=== PATIENT | female | born 1970 | race American Indian/Alaskan Native ===

== ENCOUNTER 2020-11-04 09:25 | Inpatient (IN) | payer MEDICAID ==
[2020-11-04] MEDS ORDERED: IPRATROPIUM/ALBUTEROL SULFATE 3 ML AMPUL.NEB IH ONE ×2 (09:47→14:09)
--- NOTE | 2020-11-04 09:49 | Emergency Department Report ---
ED Shortness of Breath HPI - General Stated Complaint: COUGH/LENA Time Seen by Provider: 11/04/20 09:40 - History of Present Illness Initial Comments: Patient presents with shortness of breath. She states for the last couple of weeks, she has had more more trouble breathing. She describes exertional dyspnea as well as orthopnea. She has not noticed pain or swelling in the feet. There has been a cough producing of whitish phlegm. She has not had fevers or chills. She does not know if this is her asthma acting up or something else. She does have a history of asthma. She has not been using an inhaler on any kind of frequent basis. Patient has not been eating salt. She denies chest pain. She states that she just cannot catch her breath. She does admit that when she wakes up in the middle the night, she seems to be gasping and has an i mpending sense of doom like she is going to . Patient also admits that she has not been on blood pressure medication for a month. - Related Data Allergies Allergy/AdvReac Type Severity Reaction Status Date / Time No Known Allergies Allergy Unverified 11/04/20 09:45 ED Review of Systems ROS: Stated complaint: COUGH/LENA Other details as noted in HPI Comment: All other systems reviewed and negative Constitutional: denies: fever Eyes: denies: eye pain ENT: denies: throat pain Respiratory: no symptoms reported Cardiovascular: denies: chest pain Endocrine: denies: unexplained weight loss Gastrointestinal: denies: abdominal pain Genitourinary: denies: dysuria Musculoskeletal: denies: back pain Skin: denies: rash Neurological: denies: headache Hematological/Lymphatic: denies: easy bruising ED Past Medical Hx - Past Medical History Previous Medical History?: Yes Hx Asthma: Yes - Family History Family history: hypertension ED Physical Exam - General Limitations: No Limitations, Other ( Pulse ox was noted to normal. She is not hypoxic.) General appearance: alert, in distress ( Moderate) - Head Head exam: Present: atraumatic, normocephalic, normal inspection - Eye Eye exam: Present: normal appearance, EOMI. Absent: scleral icterus - ENT ENT exam: Present: normal exam, normal external ear exam - Neck Neck exam: Present: normal inspection. Absent: meningismus - Respiratory Respiratory exam: Present: respiratory distress ( moderate), rales ( bilateral) - Cardiovascular Cardiovascular Exam: Present: normal rhythm, tachycardia - GI/Abdominal GI/Abdominal exam: Present: soft. Absent: distended, tenderness - Extremities Exam Extremities exam: Present: normal capillary refill. Absent: pedal edema - Back Exam Back exam: Absent: CVA tenderness (R), CVA tenderness (L) - Neurological Exam Neurological exam: Present: alert, oriented X3, reflexes normal. Absent: motor sensory deficit - Psychiatric Psychiatric exam: Present: other ( tearful) - Skin Skin exam: Present: warm, dry ED Course - Reevaluation(s) Reevaluation #1: 11/04/20 09:49 IV, labs, x-ray, and DuoNeb were ordered. Reevaluation #2: 11/04/20 10:28 Chest x-ray was noted. Labs are pending. Reevaluation #3: 11/04/20 12:07 Case was discussed with the hospitalist who will admit. 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 ED Medical Decision Making - Lab Data Result diagrams: 11/04/20 10:29 11/04/20 10:29 - Radiology Data Radiology results: report reviewed - Medical Decision Making Patient presents with difficulty breathing and actually describes exertional dyspnea as well as orthopnea. She does have evidence of congestive heart failure which is new onset. She will be admitted for rule out as well as restratification. She has had Lasix ordered for diuresis. Echocardiogram will be considered as well. There is no history of travel or leg edema suggestive of PE. Critical Care Time: No Critical care attestation.: If time is entered above; I have spent that time in minutes in the direct care of this critically ill patient, excluding procedure time. ED Disposition Clinical Impression: New onset of congestive heart failure, Dyspnea Disposition: ADMITTED INPATIENT Is pt being admited?: Yes Does the pt Need Aspirin: No Condition: Stable
--- NOTE | 2020-11-04 10:24 | XRay Report ---
CHEST 2 VIEWS INDICATION / CLINICAL INFORMATION: dyspnea. History of asthma. COMPARISON: [facility] chest radiograph dated 01/07/18 FINDINGS: SUPPORT DEVICES: None. HEART / MEDIASTINUM: Heart is moderately enlarged with increased since the prior study. LUNGS / PLEURA: Mild interstitial pulmonary edema. No significant pleural effusion. No pneumothorax. ADDITIONAL FINDINGS: No significant additional findings. IMPRESSION: 1. Mild congestive heart failure. Signer Name: Kvng Uriarte MD Signed: 11/04/2020 10:20 AM Workstation Name: [id number]
[2020-11-04 10:53] LABS: Basophils # (Auto) 0.1 K/mm3 (0.0-0.1); Basophils % (Auto) 1.1 % (0.0-1.8); Eosinophils # (Auto) 0.1 K/mm3 (0.0-0.4); Hematocrit 33.1 % (30.3-42.9); Hemoglobin 10.7 gm/dl (10.1-14.3); Lymphocytes # (Auto) 1.6 K/mm3 (1.2-5.4); Mean Corpuscular HGB Conc 32 % (30-34); Mean Corpuscular Volume 79 fl (79-97); Monocytes # (Auto) 0.4 K/mm3 (0.0-0.8); Monocytes % (Auto) 6.6 % (0.0-7.3); Platelet Count 387 K/mm3 (140-440); Red Cell Distribution Width 17.7 % (13.2-15.2)
[2020-11-04 11:15] LABS: BUN/Creatinine Ratio 13; Blood Urea Nitrogen 10 mg/dL (7-17); Calcium 8.1 mg/dL (8.4-10.2); Hemolysis Index 9
[2020-11-04] MEDS ORDERED: FUROSEMIDE 40 MG/4 ML INJ IV ONE (11:55)
[2020-11-04] MEDS ORDERED: LORazepam 2 MG/ML VIAL IV ONE (15:41)
--- NOTE | 2020-11-04 21:10 | History and Physical Report ---
History of Present Illness Date of examination: 11/04/20 Date of admission: 11/04/20 13:50 Chief complaint: Shortness of breath for 2 weeks on exertion History of present illness: 50-year-old -[place] female with past medical history significant for asthma comes in for increasing shortness of breath for the last 2 weeks. Shortness of breath on minimal exertion. No chest pain. Patient also more short of breath on lying flat. No swelling of the feet. No cough or fever. Patient is not vaccinated and does not want to take the Covid vaccine. No chest pain. Patient has class IV NYHA is chills. No precipitating factors. Patient not taking her blood pressure medications. Noncompliant. No insight into her problems. - Past Medical History Previous Medical History?: Yes --Asthma: Yes -Surgical history --no - Family History --Family history: hypertension Social history --no alcohol smoking -Review of Systems ROS: Stated complaint: COUGH/LENA Other details as noted in HPI Comment: All other systems reviewed and negative Constitutional: denies: fever Eyes: denies: eye pain ENT: denies: throat pain Respiratory: no symptoms reported Cardiovascular: denies: chest pain Endocrine: denies: unexplained weight loss Gastrointestinal: denies: abdominal pain Genitourinary: denies: dysuria Musculoskeletal: denies: back pain Skin: denies: rash Neurological: denies: headache Hematological/Lymphatic: denies: easy bruising Medications and Allergies Allergies Allergy/AdvReac Type Severity Reaction Status Date / Time peanut Allergy Angioedema Verified 11/04/20 21:14 Home Medications Medication Instructions Recorded Confirmed Last Taken Type Lisinopril [Zestril] 5 mg PO QDAY 11/04/20 11/04/20 Unknown History Exam - Constitutional Vitals: Temp Pulse Resp BP Pulse Ox 98.2 F 100 H 19 153/97 99 11/04/20 19:12 11/04/20 19:12 11/04/20 19:12 11/04/20 19:12 11/04/20 19:12 General appearance: Present: mild distress, well-nourished - EENT Eyes: Present: PERRL ENT: hearing intact, clear oral mucosa - Neck Neck: Present: supple, normal ROM - Respiratory Respiratory effort: normal Respiratory: bilateral: CTA - Cardiovascular Heart rate: 78 Rhythm: regular Heart Sounds: Present: S1 & S2. Absent: rub, click - Extremities Extremities: no ischemia, pulses intact, pulses symmetrical, No edema Peripheral Pulses: within normal limits - Abdominal General gastrointestinal: Present: soft, non-tender, non-distended, normal bowel sounds Female genitourinary: Present: normal - Integumentary Integumentary: Present: clear, warm, dry - Musculoskeletal Musculoskeletal: gait normal, strength equal bilaterally - Psychiatric Psychiatric: appropriate mood/affect, intact judgment & insight - Neurologic Neurologic: CNII-XII intact, moves all extremities - Allied Health Allied health notes reviewed: nursing, case management HEART Score - HEART Score History: Moderately suspicious Age: 45-65 Risk factors: 1-2 risk factors Troponin: Troponin T < 0.010 ng/mL (0.00-0.029) 11/04/20 10:29 Troponin: < normal limit - Critical Actions Critical Actions: 4-6 pts:12-16.6% risk of adverse cardiac event. Should be admitted Results - Labs CBC & Chem 7: 11/04/20 10:29 11/04/20 10:29 Labs: Laboratory Last Values WBC 6.0 K/mm3 (4.5-11.0) 11/04/20 10:29 RBC 4.20 M/mm3 (3.65-5.03) 11/04/20 10:29 Hgb 10.7 gm/dl (10.1-14.3) 11/04/20 10:29 Hct 33.1 % (30.3-42.9) 11/04/20 10:29 MCV 79 fl (79-97) 11/04/20 10:29 MCH 26 pg (28-32) L 11/04/20 10:29 MCHC 32 % (30-34) 11/04/20 10:29 RDW 17.7 % (13.2-15.2) H 11/04/20 10:29 Plt Count 387 K/mm3 (140-440) 11/04/20 10:29 Lymph % (Auto) 26.0 % (13.4-35.0) 11/04/20 10:29 [place] % (Auto) 6.6 % (0.0-7.3) 11/04/20 10:29 Eos % (Auto) 2.0 % (0.0-4.3) 11/04/20 10:29 Baso % (Auto) 1.1 % (0.0-1.8) 11/04/20 10:29 Lymph # (Auto) 1.6 K/mm3 (1.2-5.4) 11/04/20 10:29 [place] # (Auto) 0.4 K/mm3 (0.0-0.8) 11/04/20 10:29 Eos # (Auto) 0.1 K/mm3 (0.0-0.4) 11/04/20 10:29 Baso # (Auto) 0.1 K/mm3 (0.0-0.1) 11/04/20 10:29 Seg Neutrophils % 64.3 % (40.0-70.0) 11/04/20 10:29 Seg Neutrophils # 3.9 K/mm3 (1.8-7.7) 11/04/20 10:29 Sodium 141 mmol/L (137-145) 11/04/20 10:29 Potassium 4.3 mmol/L (3.6-5.0) 11/04/20 10:29 Chloride 107.7 mmol/L (98-107) H 11/04/20 10:29 Carbon Dioxide 24 mmol/L (22-30) 11/04/20 10:29 Anion Gap 14 mmol/L 11/04/20 10:29 BUN 10 mg/dL (7-17) 11/04/20 10:29 Creatinine 0.8 mg/dL (0.6-1.2) 11/04/20 10:29 Estimated GFR > 60 ml/min 11/04/20 10:29 BUN/Creatinine Ratio 13 % 11/04/20 10:29 Glucose 107 mg/dL (65-100) H 11/04/20 10:29 Calcium 8.1 mg/dL (8.4-10.2) L 11/04/20 10:29 Troponin T < 0.010 ng/mL (0.00-0.029) 11/04/20 10:29 NT-Pro-B Natriuret Pep 5325 pg/mL (0-900) H 11/04/20 Unknown Short CBC 11/04/20 Range/Units 10:29 WBC 6.0 (4.5-11.0) K/mm3 Hgb 10.7 (10.1-14.3) gm/dl Hct 33.1 (30.3-42.9) % Plt Count 387 (140-440) K/mm3 BMP 11/04/20 10:29 Sodium 141 Potassium 4.3 Chloride 107.7 H Carbon Dioxide 24 BUN 10 Creatinine 0.8 Glucose 107 H Calcium 8.1 L Cardiac Enzymes 11/04/20 Range/Units 10:29 Troponin T < 0.010 (0.00-0.029) ng/mL - Imaging and Cardiology EKG: report reviewed (Sinus rhythm no acute ST-T wave changes) Chest x-ray: report reviewed Imaging and Cardiology: Chest x-ray Lungs mild interstitial pulmonary edema no significant pleural effusion no pneumothorax. Impression mild congestive heart failure Assessment and Plan Advance Directives: Yes (Full code) VTE prophylaxis?: Chemical Plan of care discussed with patient/family: Yes - Patient Problems (1) Acute exacerbation of CHF (congestive heart failure) Current Visit: Yes Status: Acute Qualifiers: Heart failure type: unspecified Qualified Code(s): I50.9 - Heart failure, unspecified Plan to address problem: Patient has new onset CHF Patient's BNP is 5025 chest Chest x-ray is consistent with CHF No chest pain or any precipitating factor other than uncontrolled blood pressure Patient is noncompliant with her blood pressure medications Echocardiogram for ejection fraction and valve function Cardiology consult requested Patient initiated on IV Lasix and potassium Antihypertensives initiated Daily weights and intake and output (2) Hypertensive emergency Current Visit: Yes Status: Acute Plan to address problem: Blood pressure may be the precipitating factor for CHF Valsartan 160 every 12 hours, hydralazine 25 every 8 hours initiated and Coreg 6.25 every 12 hours initiated Hydralazine 10 mg IV every 3 hours as needed for blood pressure more than 150/100 Coreg 6.25 Patient counseled about noncompliance Patient to be counseled about compliance again (3) 2019 novel coronavirus vaccination declined Current Visit: Yes Status: Chronic Plan to address problem: Patient to be counseled about COVID-19 vaccine again Patient is vaccine hesitant (4) Hypocalcemia Current Visit: Yes Status: Acute Plan to address problem: Caltrate twice daily initiated (5) DVT prophylaxis Current Visit: Yes Status: Acute Plan to address problem: On heparin and GI prophylaxis
[2020-11-04] MEDS ORDERED: HYDROmorphone 1 MG/1 ML INJ IV PRN (21:12)
[2020-11-04] MEDS ORDERED: ACETAMINOPHEN 325 MG TAB PO PRN (21:12)
[2020-11-04] MEDS ORDERED: ONDANSETRON 4 MG/2 ML INJ IV PRN (21:12)
[2020-11-04] MEDS ORDERED: METOCLOPRAMIDE 10 MG/2 ML INJ IV PRN (21:12)
[2020-11-04] MEDS: POTASSIUM CHLORIDE ER 20 MEQ TAB PO SCH (22:40)
[2020-11-04] MEDS: FAMOTIDINE 20 MG TAB PO SCH (22:40)
[2020-11-05] MEDS: oxyCODONE /ACETAMINOPHEN 5-325MG TAB PO PRN ×2 (01:49→07:15)
[2020-11-05] MEDS ORDERED: FUROSEMIDE 40 MG/4 ML INJ IV SCH (06:00)
[2020-11-05] MEDS ORDERED: hydrALAZINE 20 MG/1 ML INJ IV PRN (06:24)
[2020-11-05 06:34] LABS: Basophils % (Auto) 0.5 % (0.0-1.8); Eosinophils # (Auto) 0.2 K/mm3 (0.0-0.4); Eosinophils % (Auto) 2.9 % (0.0-4.3); Hematocrit 33.9 % (30.3-42.9); Hemoglobin 11.1 gm/dl (10.1-14.3); Lymphocytes # (Auto) 2.3 K/mm3 (1.2-5.4); Lymphocytes % (Auto) 35.3 % (13.4-35.0); Mean Corpuscular HGB Conc 33 % (30-34); Mean Corpuscular Volume 78 fl (79-97); Monocytes # (Auto) 0.5 K/mm3 (0.0-0.8); Platelet Count 400 K/mm3 (140-440); Red Blood Count 4.35 M/mm3 (3.65-5.03); Red Cell Distribution Width 17.4 % (13.2-15.2)
[2020-11-05] MEDS ORDERED: VALSARTAN 160MG TAB PO SCH (06:40)
[2020-11-05 06:42] LABS: Alanine Aminotransferase 39 units/L (7-56); Albumin 3.3 g/dL (3.9-5); BUN/Creatinine Ratio 14; Blood Urea Nitrogen 13 mg/dL (7-17); Calcium 8.3 mg/dL (8.4-10.2); Hemolysis Index 1
[2020-11-05] MEDS ORDERED: carvediloL 6.25 MG TAB PO SCH ×2 (06:45→10:37)
--- NOTE | 2020-11-05 08:54 | Progress Note ---
Assessment and Plan Assessment and plan: --Acute new onset CHF (congestive heart failure) Current Visit: Yes Status: Acute Patient has new onset CHF, unknown ejection fraction Follow echocardiogram for LV function ejection fraction, continue antifailure medications diuretics, beta-blockers ROSITA inhibitors, input output monitoring, low-sodium diet Fluid restriction, daily weights, follow electrolytes Cardiology evaluation noted and appreciated Stress test tomorrow --Hypertensive emergency/present on admission Current Visit: Yes Status: Acute Blood pressure may be the precipitating factor for CHF Valsartan 160 every 12 hours, hydralazine 25 every 8 hours initiated and Coreg 6.25 every 12 hours initiated Hydralazine 10 mg IV every 3 hours as needed for blood pressure more than 150/100 Coreg 6.25 Patient counseled about noncompliance -- unvaccinated Current Visit: Yes Status: Chronic Patient to be counseled about COVID-19 vaccine again Patient is vaccine hesitant --Hypocalcemia Current Visit: Yes Status: Acute Replenish per protocol --Mild malnutrition/hypoalbuminemia Current Visit: Yes Status: Chronic Albumin 3.3 ,nutrition supplements and supportive care Nutrition consult if needed --DVT prophylaxis Current Visit: Yes Status: Acute On heparin Cardiology evaluation recommendation noted and appreciated We will closely monitor patient and adjust management as needed Plan of care reviewed with the patient and her nurse. 50-year-old female patient was admitted with worsening shortness of breath and cough Work-up is consistent with elevated BNP and CHF on chest x-ray Echocardiogram schedule, cardiology evaluated the patient 11/05/2020; New onset congestive heart failure Follow echo for LV function ejection fraction Cardiology schedule for stress test tomorrow N.p.o. from midnight, closely monitor Disposition, optimize medications, discharge when medically stable and cleared by cardiology History Interval history: Seen and examined the patient at the bedside Patient's chart and medications reviewed Patient feels slightly better still has shortness of breath and congestion Vital signs noted Hospitalist Physical - Constitutional Vitals: Temp Pulse Resp BP Pulse Ox 98.4 F 95 H 20 157/109 99 11/05/20 03:27 11/05/20 03:27 11/05/20 07:15 11/05/20 03:27 11/05/20 03:27 General appearance: Present: mild distress, well-nourished, obese - EENT Eyes: Present: PERRL, EOM intact - Neck Neck: Present: supple, normal ROM - Respiratory Respiratory effort: normal Respiratory: bilateral: diminished, negative: rales, rhonchi, wheezing - Cardiovascular Rhythm: regular Heart Sounds: Present: S1 & S2 - Extremities Extremities: no ischemia, No edema - Abdominal General gastrointestinal: soft, non-tender, non-distended, normal bowel sounds - Integumentary Integumentary: Present: clear, warm - Psychiatric Psychiatric: appropriate mood/affect, cooperative - Neurologic Neurologic: CNII-XII intact, moves all extremities HEART Score - HEART Score Age: 45-65 Risk factors: 1-2 risk factors Troponin: Troponin T < 0.010 ng/mL (0.00-0.029) 11/04/20 10:29 Troponin: < normal limit - Critical Actions Critical Actions: 4-6 pts:12-16.6% risk of adverse cardiac event. Should be admitted Results - Labs CBC & Chem 7: 11/05/20 05:15 11/05/20 05:15 Labs: Laboratory Last Values WBC 6.5 K/mm3 (4.5-11.0) 11/05/20 05:15 RBC 4.35 M/mm3 (3.65-5.03) 11/05/20 05:15 Hgb 11.1 gm/dl (10.1-14.3) 11/05/20 05:15 Hct 33.9 % (30.3-42.9) 11/05/20 05:15 MCV 78 fl (79-97) L 11/05/20 05:15 MCH 26 pg (28-32) L 11/05/20 05:15 MCHC 33 % (30-34) 11/05/20 05:15 RDW 17.4 % (13.2-15.2) H 11/05/20 05:15 Plt Count 400 K/mm3 (140-440) 11/05/20 05:15 Lymph % (Auto) 35.3 % (13.4-35.0) H 11/05/20 05:15 [place] % (Auto) 8.0 % (0.0-7.3) H 11/05/20 05:15 Eos % (Auto) 2.9 % (0.0-4.3) 11/05/20 05:15 Baso % (Auto) 0.5 % (0.0-1.8) 11/05/20 05:15 Lymph # (Auto) 2.3 K/mm3 (1.2-5.4) 11/05/20 05:15 [place] # (Auto) 0.5 K/mm3 (0.0-0.8) 11/05/20 05:15 Eos # (Auto) 0.2 K/mm3 (0.0-0.4) 11/05/20 05:15 Baso # (Auto) 0.0 K/mm3 (0.0-0.1) 11/05/20 05:15 Seg Neutrophils % 53.3 % (40.0-70.0) 11/05/20 05:15 Seg Neutrophils # 3.4 K/mm3 (1.8-7.7) 11/05/20 05:15 Sodium 138 mmol/L (137-145) 11/05/20 05:15 Potassium 3.6 mmol/L (3.6-5.0) 11/05/20 05:15 Chloride 103.5 mmol/L (98-107) 11/05/20 05:15 Carbon Dioxide 25 mmol/L (22-30) 11/05/20 05:15 Anion Gap 13 mmol/L 11/05/20 05:15 BUN 13 mg/dL (7-17) 11/05/20 05:15 Creatinine 0.9 mg/dL (0.6-1.2) 11/05/20 05:15 Estimated GFR > 60 ml/min 11/05/20 05:15 BUN/Creatinine Ratio 14 % 11/05/20 05:15 Glucose 106 mg/dL (65-100) H 11/05/20 05:15 Calcium 8.3 mg/dL (8.4-10.2) L 11/05/20 05:15 Total Bilirubin 0.50 mg/dL (0.1-1.2) 11/05/20 05:15 AST 22 units/L (5-40) 11/05/20 05:15 ALT 39 units/L (7-56) 11/05/20 05:15 Alkaline Phosphatase 72 units/L (35-129) 11/05/20 05:15 Troponin T < 0.010 ng/mL (0.00-0.029) 11/04/20 10:29 NT-Pro-B Natriuret Pep 5325 pg/mL (0-900) H 11/04/20 Unknown Total Protein 6.0 g/dL (6.3-8.2) L 11/05/20 05:15 Albumin 3.3 g/dL (3.9-5) L 11/05/20 05:15 Albumin/Globulin Ratio 1.2 % 11/05/20 05:15 [place]/IV: Voiding Method Toilet Active Medications - Current Medications Current Medications: Generic Name Dose Route Start Last Admin Trade Name Freq PRN Reason Stop Dose Admin Acetaminophen 650 mg 11/04/20 21:12 Acetaminophen 325 Mg Tab PO Q4H PRN Pain MILD(1-3)/Fever >100.5/GARY Albuterol/Ipratropium 1 ampul 11/05/20 08:00 Ipratropium/Albuterol Sulfate 3 Ml Ampul.Neb IH TIDRT [facility] Carvedilol 6.25 mg 11/05/20 06:45 Carvedilol 6.25 Mg Tab PO Q12HR [facility] Famotidine 20 mg 11/04/20 22:00 11/04/20 22:40 Famotidine 20 Mg Tab PO 20 mg BID NICOLE Administration Furosemide 40 mg 11/05/20 06:00 11/05/20 05:12 Furosemide 40 Mg/4 Ml Inj IV 40 mg 0600,1800 NICLOE Administration Heparin Sodium (Porcine) 5,000 unit 11/05/20 10:00 Heparin 5,000 Unit/1 Ml Vial SUB-Q Q12HR NICOLE Hydralazine HCl 25 mg 11/05/20 07:00 Hydralazine 25 Mg Tab PO Q8HR [facility] Hydralazine HCl 10 mg 11/05/20 06:24 Hydralazine 20 Mg/1 Ml Inj IV Q3H PRN Blood Pressure Hydromorphone HCl 0.5 mg 11/04/20 21:12 Hydromorphone 1 Mg/1 Ml Inj IV Q3H PRN Pain , Severe (7-10) Metoclopramide HCl 10 mg 11/04/20 21:12 Metoclopramide 10 Mg/2 Ml Inj IV Q6H PRN Nausea And Vomiting Multivitamins/Minerals 1 each 11/05/20 10:00 Calcium Carb/Vit D3/Minerals 600 Mg/800 Units Tab PO BID [facility] Ondansetron HCl 4 mg 11/04/20 21:12 Ondansetron 4 Mg/2 Ml Inj IV Q3H PRN Nausea And Vomiting Oxycodone/Acetaminophen 1 tab 11/04/20 21:12 11/05/20 07:15 Oxycodone /Acetaminophen 5-325mg Tab PO 1 tab Q6H PRN Administration Pain, Moderate (4-6) Potassium Chloride 20 meq 11/04/20 22:00 11/04/20 22:40 Potassium Chloride Er 20 Meq Tab PO 20 meq Q12H NICOLE Administration Sodium Chloride 10 ml 11/04/20 22:00 11/04/20 22:40 Sodium Chloride 0.9% 10 Ml Flush Syringe IV 10 ml BID NICOLE Administration Sodium Chloride 10 ml 11/04/20 21:12 Sodium Chloride 0.9% 10 Ml Flush Syringe IV PRN PRN LINE FLUSH Valsartan 160 mg 11/05/20 06:40 Valsartan 160mg Tab PO Q12HR NICOLE
[2020-11-05] MEDS: IPRATROPIUM/ALBUTEROL SULFATE 3 ML AMPUL.NEB IH SCH ×3 (09:35→20:59)
[2020-11-05] MEDS: CALCIUM CARB/VIT D3/MINERALS 600 MG/800 UNITS TAB PO SCH ×2 (09:51→22:47)
[2020-11-05] MEDS: hydrALAZINE 25 MG TAB PO SCH ×3 (09:51→22:46)
[2020-11-05] MEDS: HEPARIN 5,000 UNIT/1 ML VIAL SUB-Q SCH ×2 (09:52→22:46)
[2020-11-05] MEDS: FAMOTIDINE 20 MG TAB PO SCH ×2 (09:52→22:47)
[2020-11-05] MEDS: POTASSIUM CHLORIDE ER 20 MEQ TAB PO SCH ×2 (09:59→22:47)
[2020-11-05] MEDS ORDERED: LISINOPRIL 5 MG TAB PO SCH ×2 (10:00→10:37)
[2020-11-05] MEDS ORDERED: ENOXAPARIN 40 MG/0.4 ML INJ SUB-Q SCH (10:00)
--- NOTE | 2020-11-05 10:50 | Electrocardiograph Report ---
[facility] Test Date: 2020-11-04 Test Time: 13:37:17 Pat Name: LISSETTE PACHECO Department: Room: A465 1 Gender: F Manager Of Project Management: MAYRA : 1970 Requested By: TERESA RODRIGUEZ Order Number: [id number] Reading MD: Marcelino Sloan Measurements Intervals [place] Rate: 95 P: 39 CO: 180 QRS: -30 QRSD: 72 T: QT: 363 QTc: 458 Interpretive Statements Sinus rhythm LVH with secondary repolarization abnormality Anterior infarct, old No previous ECG available for comparison Electronically Signed On 11-05-2020 10:49:38 EDT by Marcelino Sloan
--- NOTE | 2020-11-05 11:49 | Consultation ---
History of Present Illness Consult date: 11/05/20 Requesting physician: LEVON THURSTON Consult reason: congestive heart failure History of present illness: Patient is a 50 y/o female, previously unknown to our practice, with a PMHx of HTN, HLD, anxiety who presented to the ED with a complaint of SOB x3-4 weeks. The patient reports that over the last 3-4 weeks she has become increasingly SOB and fatigued. She reports that over this time she has also had edema in in her lower extremities, developed a productive cough, has orthopnea, and PND. She also reported 101/chest pain that she described as squeezing and located it substernally and to the right side of her chest. She denies any palpitations, diaphoresis, nausea, or vomiting. She reports that normally she is active but during the last few weeks she can only walk 4-5 feet and is not able to walk upstairs without developing SOB. She reports that she has not been able to take her BP medications due to financial constraints. At the time of interview patient reports that since she has been receiving diuretics many of her symptoms have been relieved. Hospital work up reveals negative trop x1, [id number], BP152/101. Cardiology is consulted for CHF. Past History Past Medical History: hypertension, hyperlipidemia Past Surgical History: No surgical history Social history: no significant social history Family history: CAD, diabetes, hypertension Medications and Allergies Allergies Allergy/AdvReac Type Severity Reaction Status Date / Time peanut Allergy Angioedema Verified 11/04/20 21:14 Home Medications Medication Instructions Recorded Confirmed Last Taken Type Lisinopril [Zestril] 5 mg PO QDAY 11/04/20 11/04/20 Unknown History Active Meds: Active Medications Acetaminophen (Acetaminophen 325 Mg Tab) 650 mg PO Q4H PRN PRN Reason: Pain MILD(1-3)/Fever >100.5/GARY Albuterol/Ipratropium (Ipratropium/Albuterol Sulfate 3 Ml Ampul.Neb) 1 ampul IH TIDRT [facility] Last Admin: 11/05/20 09:35 Dose: 1 ampul Documented by: Carvedilol (Carvedilol 25 Mg Tab) 25 mg PO Q12HR [facility] Famotidine (Famotidine 20 Mg Tab) 20 mg PO BID [facility] Last Admin: 11/05/20 09:52 Dose: 20 mg Documented by: Furosemide (Furosemide 40 Mg/4 Ml Inj) 40 mg IV DAILY [facility] Heparin Sodium (Porcine) (Heparin 5,000 Unit/1 Ml Vial) 5,000 unit SUB-Q Q12HR [facility] Last Admin: 11/05/20 09:52 Dose: 5,000 unit Documented by: Hydralazine HCl (Hydralazine 25 Mg Tab) 25 mg PO Q8HR [facility] Last Admin: 11/05/20 09:51 Dose: 25 mg Documented by: Hydralazine HCl (Hydralazine 20 Mg/1 Ml Inj) 10 mg IV Q3H PRN PRN Reason: Blood Pressure Hydromorphone HCl (Hydromorphone 1 Mg/1 Ml Inj) 0.5 mg IV Q3H PRN PRN Reason: Pain , Severe (7-10) Lisinopril (Lisinopril 40 Mg Tab) 40 mg PO QDAY [facility] Metoclopramide HCl (Metoclopramide 10 Mg/2 Ml Inj) 10 mg IV Q6H PRN PRN Reason: Nausea And Vomiting Multivitamins/Minerals (Calcium Carb/Vit D3/Minerals 600 Mg/800 Units Tab) 1 each PO BID [facility] Last Admin: 11/05/20 09:51 Dose: 1 each Documented by: Ondansetron HCl (Ondansetron 4 Mg/2 Ml Inj) 4 mg IV Q3H PRN PRN Reason: Nausea And Vomiting Oxycodone/Acetaminophen (Oxycodone /Acetaminophen 5-325mg Tab) 1 tab PO Q6H PRN PRN Reason: Pain, Moderate (4-6) Last Admin: 11/05/20 07:15 Dose: 1 tab Documented by: Potassium Chloride (Potassium Chloride Er 20 Meq Tab) 20 meq PO Q12H [facility] Last Admin: 11/05/20 09:59 Dose: 20 meq Documented by: Sodium Chloride (Sodium Chloride 0.9% 10 Ml Flush Syringe) 10 ml IV BID [facility] Last Admin: 11/04/20 22:40 Dose: 10 ml Documented by: Sodium Chloride (Sodium Chloride 0.9% 10 Ml Flush Syringe) 10 ml IV PRN PRN PRN Reason: LINE FLUSH Review of Systems All systems: negative Constitutional: fatigue, no weight loss, no weight gain, no chills Ears, nose, mouth and throat: no nasal congestion, no nasal discharge, no sinus pressure Cardiovascular: chest pain, orthopnea, edema, shortness of breath, dyspnea on exertion, paroxysmal nocturnal dyspnea, high blood pressure, no palpitations, no syncope Respiratory: cough with sputum, shortness of breath, dyspnea on exertion Gastrointestinal: no abdominal pain, no nausea, no vomiting Musculoskeletal: no neck stiffness, no neck pain, no shooting arm pain Integumentary: no rash, no pruritis, no redness Neurological: no head injury, no transient paralysis, no paralysis Psychiatric: no anxiety, no memory loss Endocrine: no cold intolerance, no heat intolerance Hematologic/Lymphatic: no easy bruising, no easy bleeding Physical Examination Vital Signs Temp Pulse Resp BP Pulse Ox 98.2 F 107 H 20 175/124 99 11/04/20 09:49 11/04/20 09:49 11/04/20 09:49 11/04/20 09:49 11/04/20 09:49 General appearance: no acute distress HEENT: Positive: PERRL Neck: Positive: neck supple, trachea midline Cardiac: Positive: Reg Rate and Rhythm Lungs: Positive: clear to auscultation, Normal Breath Sounds Neuro: Positive: Grossly Intact Abdomen: Positive: Soft, Active Bowel Sounds Skin: Negative: Rash, Suspicious Lesions, Ulceration Extremities: Present: upper extr. pulses, lower extr. pulses, edema (trace) Results 11/05/20 05:15 11/05/20 05:15 Cardiac Enzymes 11/05/20 Range/Units 05:15 AST 22 (5-40) units/L CBC 11/05/20 Range/Units 05:15 WBC 6.5 (4.5-11.0) K/mm3 RBC 4.35 (3.65-5.03) M/mm3 Hgb 11.1 (10.1-14.3) gm/dl Hct 33.9 (30.3-42.9) % Plt Count 400 (140-440) K/mm3 Lymph # (Auto) 2.3 (1.2-5.4) K/mm3 Charles # (Auto) 0.5 (0.0-0.8) K/mm3 Eos # (Auto) 0.2 (0.0-0.4) K/mm3 Baso # (Auto) 0.0 (0.0-0.1) K/mm3 Comprehensive Metabolic Panel 11/05/20 Range/Units 05:15 Sodium 138 (137-145) mmol/L Potassium 3.6 (3.6-5.0) mmol/L Chloride 103.5 (98-107) mmol/L Carbon Dioxide 25 (22-30) mmol/L BUN 13 (7-17) mg/dL Creatinine 0.9 (0.6-1.2) mg/dL Glucose 106 H (65-100) mg/dL Calcium 8.3 L (8.4-10.2) mg/dL AST 22 (5-40) units/L ALT 39 (7-56) units/L Alkaline Phosphatase 72 (35-129) units/L Total Protein 6.0 L (6.3-8.2) g/dL Albumin 3.3 L (3.9-5) g/dL - Imaging and Cardiology Echo: pending EKG interpretations - Telemetry EKG Rhythm: Sinus Rhythm - EKG Sinus rhythms and dysrhythmias: sinus rhythm Repolarization changes or abnormalities: nonspecific abnormality, ST segment, and/or T wave Assessment and Plan Patient is a 50 y/o female with a PMHx of HTN, HLD, anxiety CHF Hypertensive Emergency SOB Chest pain(resolved) * EKG shows normal sinus rhythm 95 with no acute ischemic changes. Trop neg x 2. AMI ruled out * BNP noted to be elevated Patient reported chest pain but states that after having diueretics pain is completely gone * Echo pending Plan: Echo pending. Lipid profile pending Lexiscan MPI stress in AM. NPO after midnight Increased Coreg 25mg PO BID and Lisinopril 40mg PO QD Stop valsartan. Patient appears to be near euvolemic on exam. Lasix 40mg IV QD Patient seen in conjunction with Dr. Sloan who agrees with this plan of care. Will continue to follow - Patient Problems (1) New onset of congestive heart failure Current Visit: Yes Status: Acute (2) Dyspnea Current Visit: Yes Status: Acute (3) Acute exacerbation of CHF (congestive heart failure) Current Visit: Yes Status: Acute Qualifiers: Heart failure type: unspecified Qualified Code(s): I50.9 - Heart failure, unspecified (4) Hypertensive emergency Current Visit: Yes Status: Acute (5) 2019 novel coronavirus vaccination declined Current Visit: Yes Status: Chronic
[2020-11-05] MEDS: carvediloL 25 MG TAB PO SCH ×2 (18:10→22:47)
[2020-11-06 05:24] LABS: Chol/HDL Ratio 3.85 %
[2020-11-06] MEDS: hydrALAZINE 25 MG TAB PO SCH (06:07)
[2020-11-06] MEDS ORDERED: REGADENOSON 0.4 MG/5 ML INJ IV ONE (06:50)
[2020-11-06] MEDS: IPRATROPIUM/ALBUTEROL SULFATE 3 ML AMPUL.NEB IH SCH ×2 (09:00→14:01)
[2020-11-06] MEDS: HEPARIN 5,000 UNIT/1 ML VIAL SUB-Q SCH (10:00)
[2020-11-06] MEDS ORDERED: FUROSEMIDE 40 MG/4 ML INJ IV SCH (10:00)
--- NOTE | 2020-11-06 10:43 | Nuclear Medicine Report ---
APPROVED REPORT Exam: Nuclear Stress Test Indication: Chest pain [facility] Room #: 465 Ht: 5 ft 7 in Wt: 195 lbs BSA: 2.00 m2 HR: 81 bpmBP: 142/102 mmHgBMI: 30.53 Rhythm: SINUS RHYTHM, LVH WITH REPOLARZATION ABNORMALITY, CANNOT R/O ANTERIOR INFARCT Stress Test Details Stress Test: Pharmacologic stress testing performed using 0.4 mg of regadenoson per 5 mL given IV over 10 seconds. Reason for pharmacologic stress test: physical limitation. HR Resting HR: 81 bpm Max HR Achieved: 106 bpm Max Heart Rate (APMHR): 170 bpm Target HR (85% APMHR): 144 bpm % of APMHR: 62 Recovery HR: 99 bpm BP Resting BP: 142/102 mmHg Max BP: 157/125 mmHg Recovery BP: 141/108 mmHg ECG Resting ECG: Sinus Rhythm, LVH WITH REPLORARIZATION ABNORMALITY Stress ECG: Sinus Rhythm ST Change: Nondiagnostic resting ST abnormalities Arrhythmia: None Recovery ECG: Sinus Rhythm Recovery ST Change: Nondiagnostic resting ST abnormalities Recovery Arrhythmia: None Clinical Reason for Termination: Completed protocol Stress Symptoms: None NM EXAM: Myocardial Perfusion REST/STRESS Imaging Protocol: Rest Tc-99m/Stress Tc-99m 1 day Resting Data Rest SPECT myocardial perfusion imaging was performed in supine position 45 minutes following the intravenous injection of 10 mCi of Tc-99m Myoview. Time of rest injection: 0700 Pharmacologic Stress Pharmacologic stress test was performed by injecting Regadenoson 0.4 mg IV push followed by the intravenous injection of 28 mCi of Tc-99m Myoview. Time of stress injection: 09:34:20 Gated Stress SPECT was performed 30 minutes after stress injection. Study Data TID = 1.09. Perfusion Wall Motion Moderately severe Decreased left ventricular systolic function Moderately severe decreased left ventricular systolic function. Nuclear Conclusion ECG Findings: negative for ischemia Clinical Findings: negative for ischemia Nuclear Findings: negative for ischemia Exercise Capacity: not assessed Left Ventricular Function: abnormal Risk Study: moderate Moderately severe decreased left ventricular systolic function.
[2020-11-06] MEDS ORDERED: SPIRONOLACTONE 25 MG TAB PO SCH (11:00)
[2020-11-06] MEDS ORDERED: LISINOPRIL 40 MG TAB PO SCH (11:00)
--- NOTE | 2020-11-06 11:06 | Progress Note ---
Assessment and Plan Patient is a 50 y/o female with a PMHx of HTN, HLD, anxiety CHF Hypertensive Emergency SOB Chest pain(resolved) * EKG shows normal sinus rhythm 95 with no acute ischemic changes. Trop neg x 2. AMI ruled out * BNP noted to be elevated Patient reported chest pain but states that after having diueretics pain is completely gone * Echo 11/05/2020-EF 15 to 20%, left ventricle is mildly dilated, mild left ventricular hypertrophy, severe diastolic dysfunction is present with restrictive filling, right ventricle is mildly dilated, right ventricular systolic function is normal, mild to moderate tricuspid regurgitation left and right atrium are normal in size. * Lexiscan MPI stress 11/06/2020- negative for signs of ischemia Plan: Continue Coreg 25mg PO BID and Lisinopril 40mg PO QD Initiated Aldactone 25mg PO QD Convert to Lasix 40mg PO QD Patient cardiac status is stable and may be discharged from a cardiac point of view Patient has a BMP scheduled for 11/13/2020 at 11:15am at our [place] location Patient should follow up with Dr. Sloan, [facility], on 11/20/2020 at 12:30 at our [place] location. Patient seen in conjunction with Dr. Sloan who agrees with this plan of care. Will see as needed - Patient Problems (1) New onset of congestive heart failure Current Visit: Yes Status: Acute (2) Dyspnea Current Visit: Yes Status: Acute (3) Acute exacerbation of CHF (congestive heart failure) Current Visit: Yes Status: Acute Qualifiers: Heart failure type: unspecified Qualified Code(s): I50.9 - Heart failure, unspecified (4) Hypertensive emergency Current Visit: Yes Status: Acute (5) 2019 novel coronavirus vaccination declined Current Visit: Yes Status: Chronic Subjective Date of service: 11/06/20 Principal diagnosis: HFrEF Interval history: Patient for stress test this AM. Patient reports feeling much better today with no complaints Sinus 89 with no events on monitor Objective Vital Signs Temp Pulse Pulse Pulse Resp Resp Resp 11/06/20 09:35 11/06/20 09:34 11/06/20 09:33 11/06/20 09:32 11/06/20 08:06 11/06/20 07:16 97.7 F 85 20 11/06/20 06:07 11/06/20 04:26 98.6 F 89 18 11/05/20 23:36 98.6 F 84 18 11/05/20 22:47 99 H 11/05/20 22:46 11/05/20 22:00 11/05/20 20:56 91 H 20 11/05/20 19:15 98.8 F 92 H 20 11/05/20 17:29 98.5 F 90 20 11/05/20 14:49 92 H 92 H 20 20 11/05/20 13:45 98 H BP Pulse Ox 11/06/20 09:35 143/106 11/06/20 09:34 141/108 11/06/20 09:33 152/111 11/06/20 09:32 151/118 11/06/20 08:06 142/102 11/06/20 07:16 127/92 100 11/06/20 06:07 138/95 11/06/20 04:26 138/95 100 11/05/20 23:36 120/80 99 11/05/20 22:47 11/05/20 22:46 146/97 11/05/20 22:00 98 11/05/20 20:56 11/05/20 19:15 146/97 100 11/05/20 17:29 151/111 97 11/05/20 14:49 11/05/20 13:45 - Physical Examination General: No Apparent Distress HEENT: Positive: PERRL Neck: Positive: neck supple, trachea midline Cardiac: Positive: Reg Rate and Rhythm Lungs: Positive: Normal Breath Sounds Neuro: Positive: Grossly Intact Abdomen: Positive: Soft, Active Bowel Sounds Skin: Negative: Rash, Suspicious Lesions, Ulceration Extremities: Present: upper extr. pulses, lower extr. pulses. Absent: edema - Labs and Meds Lipids 11/06/20 Range/Units 04:36 Triglycerides 84 (2-149) mg/dL Cholesterol 154 (50-199) mg/dL HDL Cholesterol 40 (40-59) mg/dL Cholesterol/HDL Ratio 3.85 % - Imaging and Cardiology EKG: report reviewed (Sinus rhythm no acute ST-T wave changes) Echo: report reviewed - Telemetry EKG Rhythm: Sinus Rhythm - EKG Sinus rhythms and dysrhythmias: sinus rhythm Repolarization changes or abnormalities: nonspecific abnormality, ST segment, and/or T wave
[2020-11-06] MEDS: FAMOTIDINE 20 MG TAB PO SCH (12:00)
[2020-11-06] MEDS ORDERED: FUROSEMIDE 40 MG TAB PO SCH (12:00)
[2020-11-06] MEDS: CALCIUM CARB/VIT D3/MINERALS 600 MG/800 UNITS TAB PO SCH (12:00)
[2020-11-06] MEDS: POTASSIUM CHLORIDE ER 20 MEQ TAB PO SCH (12:00)
[2020-11-06] MEDS: carvediloL 25 MG TAB PO SCH (12:00)
[2020-11-06 15:52] VITALS: BP 114/89
--- NOTE | 2020-11-06 16:10 | Discharge Summary ---
Providers - Providers Date of Admission: 11/04/20 13:50 Date of discharge: 11/06/20 Attending physician: JARAD MORALES 11/04/20 21:12 Consult to Physician [CONS] Routine Comment: Consulting Provider: JOVI MCCORMICK Physician Instructions: Reason For Exam: CHF exacerbation Primary care physician: BIAS CUTTER Hospitalization Condition: Stable Pertinent studies: CXR MPI stress test 2d echo Hospital course: Patient is a 50 y/o female, previously unknown to our practice, with a PMHx of HTN, HLD, anxiety who presented to the ED with a complaint of SOB x3-4 weeks. Patient was admitted to telemetry floor with scheduled iv diuretics. Monitored with serial CE, EKG. Cardiology consulted, 2d echo obtained and showed EF of 15%. MPI stress test didn't show reversible ischemia. Provided cardiac diet, daily weights, monitored in's and O's. Patients symptom improved with medical management. Patient was then discharged home in stable condition with outpt f/u. Patient will follow up with Dr. Sloan, [facility], on 11/20/2020 at 12:30 at [facility]. Disposition: 01 HOME / SELF CARE / HOMELESS Final Discharge Diagnosis (Prints w/discharge instructions): --Acute new onset systolic CHF (congestive heart failure). --Hypertensive emergency/present on admission. -- unvaccinated for covid. --Hypocalcemia. --Mild malnutrition/hypoalbuminemia Time spent for discharge: 34 minutes Core Measure Documentation - Palliative Care Palliative Care/ Comfort Measures: Not Applicable - Core Measures Any of the following diagnoses?: heart failure - Heart Failure Discharge Requirements ROSITA/ARB for LVSD if EF <40%: Yes Beta baron at discharge: Yes Exam - Physical Exam Narrative exam: General appearance: Present: mild distress, well-nourished, obese - EENT Eyes: Present: PERRL, EOM intact - Neck Neck: Present: supple, normal ROM - Respiratory Respiratory effort: normal Respiratory: bilateral: diminished, negative: rales, rhonchi, wheezing - Cardiovascular Rhythm: regular Heart Sounds: Present: S1 & S2 - Extremities Extremities: no ischemia, No edema - Abdominal General gastrointestinal: soft, non-tender, non-distended, normal bowel sounds - Integumentary Integumentary: Present: clear, warm - Psychiatric Psychiatric: appropriate mood/affect, cooperative - Neurologic Neurologic: CNII-XII intact, moves all extremities - Constitutional Vitals: Temp Pulse Resp BP Pulse Ox 97.9 F 83 16 114/89 100 11/06/20 15:51 11/06/20 15:51 11/06/20 15:51 11/06/20 15:51 11/06/20 15:51 Plan Activity: advance as tolerated Weight Bearing Status: Weight Bear as Tolerated Diet: low fat, low salt Special Instructions: restrict fluid intake to (1.2 L daily ) Follow up with: PRIMARY CAREMD [Primary Care Provider] - 7 Days VENKAT SLOAN MD [Staff Physician] - 7 Days Prescriptions: Spironolactone [Aldactone] 25 mg PO QDAY #30 tablet hydrALAZINE [Apresoline TAB] 25 mg PO Q8HR #90 tablet Calcium Carb/Vit D3/Minerals [Caltrate Plus] 1 each PO BID #60 tablet carvediloL [Coreg] 25 mg PO Q12HR #60 tablet Aspirin EC [Halfprin EC] 81 mg PO QDAY #30 tablet. lisinopriL [Zestril TAB] 40 mg PO QDAY #60 tablet
== END 2020-11-06 18:08 | disposition home or self-care (01) | DRG 292 ==
LOC: ED 09:25 → 4A 13:50
PROVIDERS: ADMIT Internal Medicine; ATTEND Internal Medicine
DX: I11.0 Hypertensive heart disease with heart failure (principal); I16.1 Hypertensive emergency; E44.1 Mild protein-calorie malnutrition; I50.9 Heart failure, unspecified; J45.909 Unspecified asthma, uncomplicated; E83.51 Hypocalcemia; Z68.30 Body mass index [BMI] 30.0-30.9, adult; Z82.49 Family history of ischemic heart disease and other diseases of the circulatory system; Z91.010 Allergy to peanuts; E78.5 Hyperlipidemia, unspecified; Z83.3 Family history of diabetes mellitus; F41.9 Anxiety disorder, unspecified
CPT/HCPCS: 36415; 71046; 78452; 80048; 80053; 80061; 83880; 84484; 85025; 93005; 93017; 93306; 94640; 94644; G0378; A9502; J1644; J1940; J2060; J2785